=== PATIENT | male | born 1950 | race Caucasian/White ===

== ENCOUNTER → 2024-06-10 | Outpatient (CLI) | payer MEDICARE, BC, SELFPAY ==
--- NOTE | 2024-06-10 08:00 | XR_ITS ---
MRI shoulder, left, without contrast. Date and time: June 10, 2024 0855 hours INDICATIONS: Left shoulder pain beginning 4 months ago decreased range of motion pain radiating to the arm, rheumatoid arthritis diagnosis Technique: Multiple axial, sagittal and coronal sections of the shoulder have been obtained. Siemens high-resolution 1.5 Vangie MRI scanner is utilized. Axial fat-suppressed sections, TR 2350, TE 18 T2-weighted coronal fat-saturated images, TR 3500, TE 7100 T1-weighted coronal images, TR 500, TE 15 T2-weighted sagittal fat-saturated images, TR 3500, TE 57 T1-weighted sagittal sections, TR 504, TE 13. Findings: Supraspinatus tendon insertion is intact. Infraspinatus tendon insertion is intact. Subscapularis insertion is intact. Subscapularis bursa is not seen. Long head of the biceps is in the bicipital groove. No definite tear of the biceps superior labral anchor is seen. Retraction of the musculotendinous junction of the rotator cuff is not seen . Tendinosis pattern is moderate. Distance between the acromium and humeral head is 5.5 mm Atrophy of the supraspinatus muscle is moderate. Atrophy of the infraspinatus muscle is moderate. Sagittal sections demonstrate a horizontal acromion. Acromioclavicular joint demonstrates mild osteoarthritis . Osacromiale is not identified. Labral margins grossly intact. Bony glenoid fossa on the sagittal sections does not demonstrate osseous defect. Occult fracture or area of avascular necrosis is not seen. Acromioclavicular joint separation is not visible. Defect in the posterolateral margin of the humeral head is not seen Impression: Rotator cuff and labral margins intact Moderate rotator cuff tendinosis
== END | disposition home or self-care (01) ==
LOC: SMRI 08:27
PROVIDERS: PCP Internal Medicine Hospice and Palliative Medicine; Referring Provider Internal Medicine Hospice and Palliative Medicine; Visit Provider Internal Medicine Hospice and Palliative Medicine
DX: M67.814 Other specified disorders of tendon, left shoulder (principal)
CPT/HCPCS: 73221

== ENCOUNTER → 2024-10-16 | Outpatient (CLI) | payer MEDICARE, BC, SELFPAY ==
[2024-10-16 08:01] LABS: Misc Send Out* See Sep Rpt
[2024-10-16 09:07] LABS: Prostate Specific Antigen 0.21 ng/mL (0-4.00)
[2024-10-16 09:08] LABS: Alanine Aminotransferase 12 U/L (10-49); Albumin, Serum 4.1 gm/dL (3.4-4.8); Albumin/Globulin Ratio 1.8 (1.2-2.2); Alkaline Phosphatase 101 U/L (46-116); Anion Gap 9 (7-16); Aspartate Amino Transferase 24 U/L (0-34); BUN/Creatinine Ratio 16 Ratio (12-20); Blood Urea Nitrogen 16 mg/dL (9-23); C-Reactive Protein 0.7 mg/dL (0.0-0.9); Calcium 8.9 mg/dL (8.3-10.6); Calcium (Corrected) 8.9 mg/dL (8.5-10.1); Carbon Dioxide 23.1 mMol/L (20.0-31.0); Cardiac Risk Estimate 2.6 RATIO (4.0-6.7); Chloride 107 mMol/L (98-107); Cholesterol 100 mg/dL (132-200); Free T4 (Free Thyroxine) 1.27 ng/dL (0.89-1.76); Globulin 2.3 gm/dL (2.3-3.5); Glucose 98 mg/dL (74-106); HDL Cholesterol 38 mg/dL (40-60); LDL Cholesterol,Calculated 50 mg/dL (0-130); Osmolality,Calculated 278 (275-295); Potassium 4.3 mMol/L (3.4-5.1); Sodium 139 mMol/L (136-145); Total Protein 6.4 gm/dL (5.7-8.2); Triglycerides 62 mg/dL (30-150); eGFR > 60 See Note
[2024-10-16 09:11] LABS: Sed Rate (ESR) 20 mm/hr (0-20)
[2024-10-16 09:12] LABS: Vitamin D 25 Hydroxy Total 29.1 ng/mL (7.3-40.2)
[2024-10-16 09:20] LABS: Basophils % (Auto) 1 % (0-2.5); Eosinophils % (Auto) 0 % (0-10); Hematocrit 30.4 % (41.0-53.0); Hemoglobin 9.2 g/dL (13.5-16.0); Immature Granulocytes % (Auto) 1 % (0-0); Immature Granulocytes Auto 0.02 Thou/mm3 (0.00-0.00); Lymphocytes # (Auto) 0.4 Thou/mm3 (1.0-4.8); Lymphocytes % (Auto) 8 % (10-50); Mean Corpuscular HGB Conc 30.3 g/dl (31.0-37.0); Mean Corpuscular Hemoglobin 23.5 pg (25.0-35.0); Mean Corpuscular Volume 78 fL (80-100); Monocytes # (Auto) 0.1 Thou/mm3 (0.0-0.8); Monocytes % (Auto) 3 % (0-12); Neutrophils # (Auto) 3.8 Thou/mm3 (1.8-7.7); Neutrophils % (Auto) 87 % (37-80); Nucleated Red Blood Cell % 0 /100 WBC (0); Platelet Count 166 Thou/mm3 (140-440); RDW Standard Deviation 49.3 fL (35.1-43.9); Red Blood Count 3.91 Miln/mm3 (4.50-5.90); White Blood Count 4.4 Thou/mm3 (3.8-10.6)
[2024-10-16 09:55] LABS: Creatinine MALB Rnd Ur 100 mg/dL (30-125); Microalbumin Creat Ratio 4 mg/gCrea (<30); Microalbumin, Random Urine 4 mg/L (0-300)
[2024-10-22 23:34] LABS: Sjogren's antibody (SS-A) <1.0 NEG AI (<1.0 NEGATIVE); Sm Antibody <1.0 NEG AI (<1.0 NEGATIVE)
[2024-10-23 06:26] LABS: ANA Screen, IFA NEGATIVE (NEGATIVE); ANCA Screen NEGATIVE (NEGATIVE); CCP Antibody (IgG)* <16 Units; DNA (ds) Antibody* <1 IU/mL; Myeloperoxidase Ab <1.0 AI (<1.0); Scl-70 Antibody* <1.0 NEG AI (<1.0 NEGATIVE); Sjogren's Antibody (SS-B) <1.0 NEG AI (<1.0 NEGATIVE); Sm/RNP Antibody <1.0 NEG AI (<1.0 NEGATIVE)
[2024-10-23 06:27] LABS: Proteinase-3 Ab <1.0 AI (<1.0)
== END | disposition home or self-care (01) ==
LOC: COPL 07:31
PROVIDERS: PCP Internal Medicine Hospice and Palliative Medicine; Referring Provider Nurse Practitioner Family; Visit Provider Nurse Practitioner
DX: M79.641 Pain in right hand (principal); R29.898 Other symptoms and signs involving the musculoskeletal system; M11.20 Other chondrocalcinosis, unspecified site; E78.5 Hyperlipidemia, unspecified; N40.0 Benign prostatic hyperplasia without lower urinary tract symptoms; Z12.5 Encounter for screening for malignant neoplasm of prostate; I87.312 Chronic venous hypertension (idiopathic) with ulcer of left lower extremity; D64.9 Anemia, unspecified; E55.9 Vitamin D deficiency, unspecified; R53.83 Other fatigue; M10.9 Gout, unspecified; M13.0 Polyarthritis, unspecified
CPT/HCPCS: 36415; 80053; 80061; 82043; 82306; 82570; 84153; 84439; 84443; 84550; 85025; 85652; 86021; 86036; 86038; 86140; 86200; 86225; 86235

== ENCOUNTER → 2024-10-21 | Outpatient (CLI) | payer MEDICARE, BC, SELFPAY ==
[2024-10-27 07:07] LABS: Fecal Globin Result NOT DETECTED (NOT DETECTED)
== END | disposition home or self-care (01) ==
LOC: SLDO 12:21
PROVIDERS: Referring Provider Nurse Practitioner Family; Visit Provider Nurse Practitioner Family
DX: Z12.11 Encounter for screening for malignant neoplasm of colon (principal)
CPT/HCPCS: 82274; G0328

== ENCOUNTER 2024-11-06 02:30 | Inpatient (IN) | payer MEDICARE, BC, SELFPAY ==
[2024-11-06] VITALS (29 sets, daily range): BP systolic 118–169; BP diastolic 51–98; PULSE 60–96; RESP 9–98; TEMP 36.6–37.2; O2SAT 83–100; BMI 21.9
--- NOTE | 2024-11-06 02:45 | XR_ITS ---
Examination: AP chest single view TECHNIQUE: AP portable supine chest single view Exam date and time: November 06, 2024, 0433 hours Comparison February 13, 2022 INDICATIONS: Preop chest x-ray, ground level fall today with femur fracture FINDINGS: Mild CHF Mild enlargement cardiac contour Prominent vascular congestion with early perihilar edema Severe osteopenia IMPRESSION: Mild CHF
--- NOTE | 2024-11-06 02:45 | XR_ITS ---
Examination: CT brain head without contrast. 2-D sagittal coronal reconstructions Date and time of exam:November 06, 2024 0422 hours INDICATIONS: Ground-level fall with injury today, CTDI: vol (mGy): 52.9 DLP: (mGycm):1047 Technique: Multiple CT axial sections of the brain have been obtained, 5 mm slice thickness. Contrast has not been administered. 2-D sagittal, coronal reconstructions have been obtained Low dose protocols were performed. One or more of the following dose reduction techniques were used; automated exposure control, adjustment of the mA and/or KV according to patient size, use of iterative reconstruction technique. Findings: No significant ventricular enlargement. Intra-axial or extra-axial hemorrhage density is not seen. No mass effect or midline shift Basal cisterns are not remarkable. Fourth ventricle is midline. Cranial vault intact. Impression: Negative for acute hemorrhage, mass effect or midline shift
--- NOTE | 2024-11-06 02:51 | XR_ITS ---
Examination: Right femur 2 views Technique one AP lateral right femur 2 views Examination type: November 06, 2024 0443 hours INDICATIONS: Ground-level fall today with injury to the femur, femur pain. FINDINGS: Acute severely comminuted angulated fracture distal femoral shaft, up to 20 mm offset on the AP view of the fracture fragments Total right hip arthroplasty with satisfactory alignment IMPRESSION: Acute severity comminuted angulated fracture distal femoral shaft
--- NOTE | 2024-11-06 02:51 | XR_ITS ---
Examination:Right hip AP, lateral, AP pelvis 3 views Technique: Hip AP lateral, AP pelvis, 3 views Exam date and time:November 06, 2024 0434 hours INDICATIONS: Ground-level fall today with injury to the right hip, right hip pain FINDINGS: Total right hip arthroplasty. Adequate alignment Left hip bipolar hemiarthroplasty with satisfactory alignment Bones of the pelvis intact IMPRESSION: No acute fracture.
--- NOTE | 2024-11-06 02:51 | EKG_ITS ---
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
--- NOTE | 2024-11-06 02:56 | XR_ITS ---
Examination: CT cervical spine without contrast 2-D sagittal reconstructions 2-D coronal reconstructions 3-D reconstructions. Exam date and time:November 06, 2024 0422 hours INDICATIONS: Ground-level fall today with injury of the neck, neck pain CTDI:vol (mGy) 8.8 DLP: (mGycm) 180 Technique: Multiple 2 mm axial sections of the cervical spine have been obtained. The coronal and sagittal reconstructions have been obtained. 3-D reconstructions have been obtained. Low dose protocols were performed. One or more of the following dose reduction techniques were used; automated exposure control, adjustment of the mA and/or KV according to patient size, use of iterative reconstruction technique. Findings: Axial sections demonstrate intact base of the skull. C1 exhibit satisfactory relationship to the odontoid. No acute cervical vertebral body fracture seen. Alignment posterior spinous processes satisfactory. Impression: No acute cervical fracture. Probable septal edema in the lung ornelas
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
[2024-11-06] MEDS: ONDANSETRON INJ 2 MG/ML INJ 2 ML 4 MG IV (03:48)
[2024-11-06] MEDS: fentaNYL CIT INJ 50 mCg/ML AMP 2ML 25 MCG IVP (03:48)
--- NOTE | 2024-11-06 03:54 | PC.NURSE ---
0T REFUSED TO ANSWER ANY MEDICAL HISTORY
[2024-11-06 04:08] LABS: Basophils % (Auto) 1 % (0-2.5); Eosinophils # (Auto) 0.1 Thou/mm3 (0.0-0.5); Eosinophils % (Auto) 2 % (0-10); Hematocrit 27.2 % (41.0-53.0); Immature Granulocytes % (Auto) 0 % (0-0); Immature Granulocytes Auto 0.02 Thou/mm3 (0.00-0.00); Lymphocytes % (Auto) 16 % (10-50); Mean Corpuscular HGB Conc 29.8 g/dl (31.0-37.0); Mean Corpuscular Hemoglobin 22.8 pg (25.0-35.0); Mean Corpuscular Volume 76 fL (80-100); Monocytes # (Auto) 0.6 Thou/mm3 (0.0-0.8); Monocytes % (Auto) 10 % (0-12); Neutrophils # (Auto) 4.4 Thou/mm3 (1.8-7.7); Neutrophils % (Auto) 71 % (37-80); Nucleated Red Blood Cell % 0 /100 WBC (0); Platelet Count 125 Thou/mm3 (140-440); RDW Standard Deviation 50.6 fL (35.1-43.9); Red Blood Count 3.56 Miln/mm3 (4.50-5.90); White Blood Count 6.2 Thou/mm3 (3.8-10.6)
[2024-11-06] MEDS: KETAMINE 50 MG/ML VIAL 10 ML 25 MG IVP (04:12)
[2024-11-06 04:13] LABS: Hemoglobin 8.1 g/dL (13.5-16.0)
[2024-11-06 04:22] LABS: INR 1.2 (0.9-1.3); Partial Thromboplastin Time 29.7 Seconds (22.0-36.0)
[2024-11-06 04:23] LABS: Alanine Aminotransferase 26 U/L (10-49); Albumin, Serum 3.5 gm/dL (3.4-4.8); Albumin/Globulin Ratio 1.5 (1.2-2.2); Alkaline Phosphatase 143 U/L (46-116); Anion Gap 5 (7-16); Aspartate Amino Transferase 31 U/L (0-34); BUN/Creatinine Ratio 11 Ratio (12-20); Bilirubin,Total 0.6 mg/dL (0.3-1.2); Blood Urea Nitrogen 10 mg/dL (9-23); Calcium (Corrected) 8.4 mg/dL (8.5-10.1); Carbon Dioxide 23.6 mMol/L (20.0-31.0); Chloride 111 mMol/L (98-107); Creatinine (Component) 0.9 mg/dL (0.6-1.3); Estimated Creatinine Clearance 68.5 mL/min (>60); Globulin 2.3 gm/dL (2.3-3.5); Glucose 123 mg/dL (74-106); Magnesium 1.8 mg/dL (1.6-2.6); Osmolality,Calculated 279 (275-295); Phosphorous 3.3 mg/dL (2.4-5.1); Potassium 3.7 mMol/L (3.4-5.1); Sodium 140 mMol/L (136-145); Total Protein 5.8 gm/dL (5.7-8.2); Troponin I < 0.020 ng/mL (0.0-0.045); eGFR > 60 See Note
--- NOTE | 2024-11-06 04:42 | PC.NURSE ---
PT POCKET KNIFE AND SUPERINTENDENT REFUSE DISPOSAL WITH SECURITY
--- NOTE | 2024-11-06 04:48 | XR_ITS ---
Examination: Tibia-Fibula, right , 2 views Technique: Tibia-fibula AP lateral 2 views Date and time of exam: November 06, 2024 0456 hours INDICATIONS: Ground-level fall with injury to the lower leg today, lower leg pain. FINDINGS: Significant osteopenia. No fracture-dislocation involving the lower leg IMPRESSION: No fracture or dislocation involving the lower leg
[2024-11-06] MEDS: Magnesium Sulfate 2 GM Ivpb 2 GM/50 ML BAG IV (05:09)
--- NOTE | 2024-11-06 05:12 | PRELIM_ITS ---
CT scan of the head without intravenous contrast (axial sections with sagittal and coronal reformats) November 06, 2024 0422 hours Clinical History: Ground level fall. Comparison: None. Findings: There is no evidence of intracranial hemorrhage, mass effect or midline shift. There are periventricular white matter hypodensities, compatible with chronic small vessel ischemia. There is severe volume loss. The calvarium is intact. The mastoid air cells and the visualized paranasal sinuses are clear. Impression: No evidence of intracranial hemorrhage, midline shift or calvarial fracture. Periventricular chronic small vessel ischemia and volume loss. Report Electronically Signed By: Felix Del Rosario 11/06/2024 5:12:05 AM [EST]
[2024-11-06 05:16] LABS: Base Excess -2 (-3-3); HCO3 23 mEq/L (20-26); Inspired Oxygen, FIO2 35 %; O2 Saturation 98 % (91-98); PCO2 37 mmHg (32.0-48.0); PO2 101 mmHg (83-108)
[2024-11-06 05:17] LABS: Allen Test Performed/OK; Puncture Site Right Radial
--- NOTE | 2024-11-06 05:18 | PRELIM_ITS ---
CT scan of the cervical spine without intravenous contrast (axial sections with sagittal and coronal reformats). November 06, 2024 at 0422 hours Clinical History: Ground level fall. Comparison: No prior study is available for comparison. Findings: There is no fracture or subluxation. The prevertebral soft tissues are unremarkable. Chronic degenerative changes of the imaged portions of the spine. Chronic multilevel disc disease. No acute fractures. Bilateral interstitial lung thickening. Impression: No evidence of fracture or subluxation. Bilateral interstitial lung thickening. Consider further evaluation with imaging of the lungs. Report Electronically Signed By: Felix Del Rosario 11/06/2024 5:18:10 AM [EST]
--- NOTE | 2024-11-06 05:47 | ECHO_ITS ---
Transthoracic Echo Report Ht (in): 68 Wt (lb): 144 Exam Location: Portable Status: Emergency Clip Riveter: GERI Rdz^^^^ Indications: Procedure Performed: BP: 118 / 62 HR: 58 Technical Quality: Technically difficult study MEASUREMENTS (Male / Female) Normal Values 2D ECHO LV Diastolic Diameter PLAX 4.8 cm 4.2 - 5.9 / 3.9 - 5.3 cm LV Systolic Diameter PLAX 3.1 cm IVS Diastolic Thickness 1.1 cm 0.6 - 1.0 / 0.6 - 0.9 cm LVPW Diastolic Thickness 1.1 cm 0.6 - 1.0 / 0.6 - 0.9 cm LV Relative Wall Thickness 0.4 LVOT Diameter 1.8 cm Aortic Root Diameter 3.8 cm LA Systolic Diameter LX 5.3 cm 3.0 - 4.0 / 2.7 - 3.8 cm LA Volume Index 68.4 cm?/m? 16 - 28 cm?/m? DOPPLER AV Peak Velocity 114.5 cm/s AV Peak Gradient 5.2 mmHg AV Mean Gradient 3.0 mmHg AV Velocity Time Integral 26.6 cm AI Peak Velocity 140.0 cm/s AI Peak Gradient 7.8 mmHg AI Pressure Half Time 254.0 ms LVOT Peak Velocity 76.1 cm/s LVOT Peak Gradient 2.3 mmHg LVOT Velocity Time Integral 19.4 cm LVOT Cardiac Index 1617.7 cm?/min?m? AV Area Cont Eq vti 1.9 cm? AV Area Cont Eq pk 1.7 cm? MV Peak Velocity 106.0 cm/s MV Peak Gradient 4.5 mmHg MV Mean Velocity 63.8 cm/s MV Mean Gradient 2.0 mmHg MV Area PHT 4.0 cm? Mitral E Point Velocity 111.0 cm/s Mitral A Point Velocity 63.2 cm/s Mitral E to A Ratio 1.8 LV E' Lateral Velocity 13.4 cm/s Mitral E to LV E' Lateral Ratio 8.3 LV E' Septal Velocity 5.0 cm/s Mitral E to LV E' Septal Ratio 22.4 TR Peak Velocity 331.3 cm/s TR Peak Gradient 43.9 mmHg PV Peak Velocity 90.4 cm/s PV Peak Gradient 3.3 mmHg RVOT Peak Velocity 46.6 cm/s FINDINGS Left Ventricle Normal left ventricular size, wall thickness, systolic function with no obvious regional wall motion abnormalities. There is grade II diastolic dysfunction of the left ventricle (pseudonormal filling pattern). The left ventricular ejection fraction is normal, estimated at 60-65%. Right Ventricle The right ventricle is normal in size and systolic function. The estimated right ventricular systolic pressure is moderately elevated 50 mmHg. Left Atrium Moderately increased left atrial volume 68.4 mL/m?. Right Atrium The right atrial cavity size is mildly increased. Atrial Septum The interatrial septum appears normal with no evidence of a shunt. Aorta The aorta is normal by two-dimensional, color flow and Doppler interrogation. Mitral Valve Mild mitral regurgitation. Mild mitral annular calcification. Aortic Valve Mild aortic valve regurgitation. Diffuse calcification of the aortic valve. Tricuspid Valve There is moderate tricuspid regurgitation. Pulmonic Valve The pulmonic valve is not well visualized. There is no significant pulmonic valve regurgitation. Vessels The pulmonary artery appears normal. The inferior vena cava pulmonary and hepatic veins appear normal. Pericardium The pericardium is normal by two-dimensional imaging. There is no significant pericardial effusion. CONCLUSIONS indication: cardiac clearance LV appears normal with EF 60-65%. Diastolic Dysfunction II. RV appears normal with RVSP moderately elevcated 50 mmHg. LA & RA dilated Mild MR & MAC Moderate TR Mild AI Viridiana Henderson (Electronically Signed) Final Date: 06 Nov 2024 12:01
--- NOTE | 2024-11-06 05:56 | EVENTNT_ITS ---
Documentation for date of: 11/06/24 Event Note Event Note: Received call from ER for possible admission. Patient is a 74-year-old male with past medical history of HFpEF, coronary artery disease status post PCI, A-fib on Eliquis, follows research computing specialist Dr. Rothman in [place], [place] brought into the ER after mechanical ground-level fall after he tripped over the carpet. He was found to have right comminuted femur fracture. ER consulted orthopedic surgeon Dr. See, The patient will require cardiac clearance prior to surgery.Noted to have stable vitals, blood pressure 137/73, respiratory rate 16, pulse 65-minute, saturating 100% on room air. Will inform dayshift to admit the patient. ? Hold Eliquis ? Cardiac consult for cardiac clearance prior to surgery ? Pending orthopedic recommendations Plan of care discussed with Attending Jhoan pgy 2
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
[2024-11-06] MEDS: SODIUM CHLORIDE 0.9% 1000 ML 1,000 ML 75 ML IV (09:02)
[2024-11-06] MEDS: HYDROcodone/APAP 10/325 TAB PO ×3 (09:03→21:00)
--- NOTE | 2024-11-06 09:44 | PC.NURSE ---
ATTEMPTED TO INSERT ADAMS WITHOUT SUCCESS. GALINA KELLY TO CALL HOSPITALIST FOR ORDER FOR COUDE CATHETER
--- NOTE | 2024-11-06 09:46 | PC.NURSE ---
[employer] CALLED AND ASKED TO BRING UROLOGY CART. PER [employer] STAFF, WILL BRING IT TO THE ER SOON.
[2024-11-06 10:37] LABS: Collection Type, Urine Clean Catch
[2024-11-06 11:03] LABS: Amphetamine/Methamp Scrn,U Negative (Negative); Barbiturate Screen,Urine Negative (Negative); Benzodiazepines Screen,Urine Negative (Negative); Benzoylecgonine Screen, Ur Negative (Negative); Fentanyl Screen,Urine Positive (Negative); Opiate Screen,Urine Positive (Negative); THC Screen,Urine Positive (Negative)
[2024-11-06 14:03] LABS: Bilirubin,Urine Negative (Negative); Blood,Urine 3+ (Negative); Clarity,Urine Clear (Clear/Hazy); Color,Urine Yellow (Lt Yel-Yel); Glucose, Urine Negative (Negative); Hyaline Casts,Urine < 1 /hpf (0-1); Ketones,Urine Negative (Negative); Leukocyte Esterase,Urine Negative (Negative); Nitrite,Urine Negative (Negative); Protein,Urine Trace (Neg - Trace); RBC,Urine 3 /hpf (0-3); Specific Gravity,Urine 1.018 (1.001-1.035); Squamous Epithelial Cell,Urine < 1 /hpf (0-5); Urobilinogen,Urine Negative mg/dL (0.0-1.0); WBC,Urine 3 /hpf (0-5)
--- NOTE | 2024-11-06 14:59 | PC.NURSE ---
Pt refusing to be turned and at this time due to pain to R leg. Pt educated on risks of developing pressure injuries if pt continues to lay on his back without turning; per pt, I know; you can't move me.
--- NOTE | 2024-11-06 18:08 | PC.NURSE ---
Patient arrived to floor 10/10 pain moving him to his bed. Pt fell asleep quickly, admit limited as patient was lethargic after getting settled into bed. Make shift brace to right leg made with cardboard from EMS is in place.
[2024-11-07] VITALS (13 sets, daily range): BP systolic 123–151; BP diastolic 60–89; PULSE 71–889; RESP 13–99; TEMP 36.1–37.1; O2SAT 94–98; BMI 23.6
[2024-11-07] MEDS: SODIUM CHLORIDE 0.9% 1000 ML 1,000 ML 75 ML IV ×2 (01:27→12:53)
[2024-11-07] MEDS: HYDROcodone/APAP 10/325 TAB PO ×2 (02:25→08:43)
[2024-11-07 06:25] LABS: Basophils % (Auto) 0 % (0-2.5); Eosinophils % (Auto) 1 % (0-10); Hematocrit 26.1 % (41.0-53.0); Immature Granulocytes % (Auto) 1 % (0-0); Immature Granulocytes Auto 0.04 Thou/mm3 (0.00-0.00); Lymphocytes # (Auto) 0.8 Thou/mm3 (1.0-4.8); Lymphocytes % (Auto) 10 % (10-50); Mean Corpuscular HGB Conc 29.9 g/dl (31.0-37.0); Mean Corpuscular Hemoglobin 22.9 pg (25.0-35.0); Mean Corpuscular Volume 77 fL (80-100); Monocytes # (Auto) 0.8 Thou/mm3 (0.0-0.8); Monocytes % (Auto) 10 % (0-12); Neutrophils # (Auto) 6.5 Thou/mm3 (1.8-7.7); Neutrophils % (Auto) 80 % (37-80); Nucleated Red Blood Cell % 0 /100 WBC (0); Platelet Count 133 Thou/mm3 (140-440); RDW Standard Deviation 49.9 fL (35.1-43.9); White Blood Count 8.2 Thou/mm3 (3.8-10.6)
[2024-11-07 06:32] LABS: Hemoglobin 7.8 g/dL (13.5-16.0)
[2024-11-07 06:54] LABS: Alanine Aminotransferase 16 U/L (10-49); Albumin/Globulin Ratio 1.6 (1.2-2.2); Alkaline Phosphatase 121 U/L (46-116); Anion Gap 5 (7-16); Aspartate Amino Transferase 18 U/L (0-34); BUN/Creatinine Ratio 14 Ratio (12-20); Bilirubin,Total 1.1 mg/dL (0.3-1.2); Blood Urea Nitrogen 11 mg/dL (9-23); Calcium 7.6 mg/dL (8.3-10.6); Calcium (Corrected) 8.4 mg/dL (8.5-10.1); Carbon Dioxide 23.2 mMol/L (20.0-31.0); Chloride 112 mMol/L (98-107); Creatinine (Component) 0.8 mg/dL (0.6-1.3); Estimated Creatinine Clearance 80.8 mL/min (>60); Globulin 1.9 gm/dL (2.3-3.5); Glucose 94 mg/dL (74-106); Magnesium 1.8 mg/dL (1.6-2.6); Osmolality,Calculated 278 (275-295); Phosphorous 3.1 mg/dL (2.4-5.1); Sodium 140 mMol/L (136-145); Total Protein 4.9 gm/dL (5.7-8.2); eGFR > 60 See Note
--- NOTE | 2024-11-07 08:27 | PD.IMCONS ---
HPI Data of Consult Requesting Physician: Marline Mcdaniel DO Primary Care Provider: Physician No Primary/Family Consult Narrative History of present illness: This is [id number] male with past medical history of HFpEF, CAD status post PCI, A-fib on Eliquis pt seen in ER following a fall ; sustained a fracture pt denies chest pain c/o of pain over the fracture R leg EKG afib ; no ischemic change HR 70-80 troponin negative eche normal EF no significant valve dysfunction cc:: cc: Marline Mcdaniel DO Meds Home Medications and Allergies Home Medications ?Medication ?Instructions ?Recorded ?Confirmed ?Type allopurinol 100 mg tablet 100 mg 1XD 02/13/22 02/14/22 History apixaban 5 mg tablet (Eliquis) 5 mg 2XD 02/13/22 02/14/22 History colchicine 0.6 mg tablet 1 tab 1XD 02/13/22 02/14/22 History oxycodone-acetaminophen 10 mg-325 1 tab 5 TIMES DAILY 02/13/22 02/14/22 History mg tablet tamsulosin 0.4 mg capsule (Flomax) 0.4 mg PO 1XD 02/13/22 02/14/22 History allopurinol 300 mg tablet 300 mg 1XD 02/14/22 02/14/22 History Allergies Allergy/AdvReac Type Severity Reaction Status Date / Time No Known Allergies Allergy Verified 11/06/24 02:59 Exam Vital Signs Temp Pulse Resp BP Pulse Ox O2 Del Method O2 Flow Rate 98.2 F 94 14 129/73 98 Room Air 2 11/07/24 08:00 11/07/24 08:00 11/07/24 08:00 11/07/24 08:00 11/07/24 08:00 11/07/24 04:00 11/07/24 00:00 Routine HEENT Exam Head: Present normocephalic and atraumatic Eye: Present EOMI and PERRL ENT: Present mucous membranes moist Routine Neck Exam Neck: Present supple and trachea midline Routine Respiratory Exam Respiratory: Present chest non-tender, lungs clear, normal breath sounds and no resp distress Routine Cardiovascular Exam Cardiovascular: Present RRR Routine Abdominal Exam Abdominal: Present soft and normoactive bowel sounds Routine Extremities Exam Extremities: Present full ROM Routine Skin Exam Skin: Present intact, dry and warm Routine Neurological Exam Neurological: Present alert, oriented X3 and CN II-XII intact Routine Psychiatric Exam Psychiatric: Present normal affect and normal thought process Results Labs 11/07/24 05:26 11/07/24 05:26 Labs: Short CBC 11/07/24 Range/Units 05:26 WBC 8.2 (3.8-10.6) Thou/mm3 Hgb 7.8 L (13.5-16.0) g/dL Hct 26.1 L (41.0-53.0) % Plt Count 133 L (140-440) Thou/mm3 BMP 11/07/24 05:26 Sodium 140 Potassium 4.0 Chloride 112 H Carbon Dioxide 23.2 BUN 11 Creatinine 0.8 Glucose 94 Calcium 7.6 L Liver Function 11/07/24 Range/Units 05:26 Total Bilirubin 1.1 D (0.3-1.2) mg/dL AST 18 (0-34) U/L ALT 16 (10-49) U/L Alkaline Phosphatase 121 H D (46-116) U/L Albumin 3.0 L D (3.4-4.8) gm/dL Urine 11/06/24 Range/Units 10:31 Urine Color Yellow (Lt Yel-Yel) Urine Clarity Clear (Clear/Hazy) Urine pH 6.0 (5.0-7.0) Ur Specific [place] 1.018 (1.001-1.035) Urine Protein Trace (Neg - Trace) Urine Glucose (UA) Negative (Negative) ABG Interpretation ABG results: 11/06/24 05:05 ABG pH 7.40 ABG pCO2 37 ABG pO2 101 ABG HCO3 23 ABG O2 Saturation 98 ABG Base Excess -2 Assessment and Plan Assessment and plan (1) Fracture of distal end of right femur: Status: Acute (2) Afib: Status: Acute (3) Preop cardiovascular exam: Status: Acute (4) CAD (coronary artery disease): Status: Acute Additional Assessment & Plan Additional Plan: d/c eliquis pt offers no cardiac symptoms echo / EKG / torponin all unremarkable pt in optimal cardiac condition for the planned surgery
[2024-11-07] MEDS: TAMSULOSIN HCL 0.4 MG CAPSULE PO (08:42)
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
--- NOTE | 2024-11-07 11:07 | PC.SS ---
RN BEHAVIORAL HEALTH conducted bedside contact with the patient conduct initial assessment and to discuss discharge planning.? Patient confirmed demographic information.? Patient resides at home with spouse, Malathi Francicso .? Patient utilizes a walker to assist with ambulation.? Patient does not utilize home oxygen.? Patient describes the ability to complete ADL?s independently.? Patient identified spouse, Malathi Francisco; as medical surrogate decision maker.? Patient?s PCP is [facility].? Patient does not participate with dialysis.? Patient?s eye glass frame polisher is Dr. Rothman.? Patient utilizes [facility] for medication services.? Patient states that plan is to return home with home health services.? Preferred agency is [facility].? If SNF is recommended preferred facility is [facility].? pupil personnel services director to assist with arranging transportation on behalf of the patient at the time of discharge.? No further discharge needs identified by the patient.? No further intervention required at this time, home health care social worker will be available to address any further concerns.? Next of Kin: Malathi Francisco D/C Plan: Pending
[2024-11-07] MEDS: oxyCODONE/APAP 5/325 TABLET 2 TAB PO ×2 (13:02→19:23)
--- NOTE | 2024-11-07 13:47 | PC.SS ---
[employer] TECHNICIAN completed PASSR. Patient meets Level I critieria. No PASSR follow up required.
--- NOTE | 2024-11-07 14:37 | PC.SS ---
Rounding Note: Plan is for the patient to undergo surgery on Sunday.
--- NOTE | 2024-11-07 17:12 | ESCONSULT_ITS ---
RE: LUIS SAMS : 1950 DATE OF CONSULTATION: 11/07/2024 Thank you, Dr. Danilo Garcia, for asking me to consult with the patient, whom I saw on 11/07/2024 in the morning. As per history available, patient tripped on a carpet and injured his right distal femur. The patient was unable to walk. X-ray was obtained in the emergency room, which revealed displaced angulated fracture of the right distal femur. The patient is admitted for further management. It is to be noted that patient is status post right total hip replacement. PAST MEDICAL HISTORY: The patient has history of atrial fibrillation and coronary artery disease. No history of diabetes mellitus, asthma, seizures, chest pain or myocardial infarction. PAST SURGICAL HISTORY: Status post right total knee replacement, left knee surgery, and possible stent placement by Dr. Rothman, the office systems technology instructor. DRUG HISTORY: The patient is on allopurinol, Eliquis 5 mg twice daily, and oxycodone. ALLERGIES: NIL KNOWN. FAMILY HISTORY AND SOCIAL HISTORY: Noncontributory. PHYSICAL EXAMINATION: GENERAL: Fully alert and oriented person. VITAL SIGNS: Pulse is 82 per minute and blood pressure 130/76. NECK: Soft and supple. No mass felt. Trachea is centrally placed. CARDIOVASCULAR SYSTEM: First and second heart sound normal. No murmur heard. RESPIRATORY SYSTEM: Bilateral vesicular breath sounds. Chest clear. ABDOMEN: Soft. No mass felt. Bowel sounds present. Right lower limb examination revealed tenderness at the distal end. Besides that, there is a deformity. Neurovascularly, it is intact. X-ray revealed angulated displaced fracture of the right distal femur. I discussed the situation with the family and the patient. Explained that it needs fixation either with the nail or screws and plate. Risk with anesthesia was explained and that includes, but not limited to reaction to anesthetic agents, cardiac arrest, and rarely it might be fatal. Risk with operation includes infection and if that happens, patient may need further surgical procedure. Other risks include delayed healing, wound dehiscence, etc. No guarantee is given regarding the outcome of the procedure nor relief of symptoms. I discussed the situation with Dr. Mcdaniel, the family physician. I explained that since the patient is taking high dose of Eliquis and the last dose was taken only about 30 hours back, therefore I think we need to wait for another day or [address] Mcdaniel agrees with that. Besides that, the patient's hemoglobin is also low. On 11/07/2024, it is 7.8 g and hematocrit is 26.1. Most likely, the surgical procedure will be done after a couple of days on 11/09/2024. After a detailed discussion, the patient and the family wanted to proceed, but has to wait because of patient being on anticoagulant therapy. DT: 13:59:42 TT: 17:11:00 Ref: [id number] - TID: [id number]
--- NOTE | 2024-11-07 18:13 | PC.NURSE ---
Pt continues to refuse turning
[2024-11-08] VITALS (10 sets, daily range): BP systolic 138–150; BP diastolic 72–92; PULSE 60–109; RESP 15–96; TEMP 36.1–36.9; O2SAT 95–97; BMI 25.7
[2024-11-08] MEDS: oxyCODONE/APAP 5/325 TABLET 2 TAB PO ×4 (03:07→22:05)
[2024-11-08] MEDS: SODIUM CHLORIDE 0.9% 1000 ML 1,000 ML 75 ML IV (05:07)
[2024-11-08 06:15] LABS: Basophils % (Auto) 1 % (0-2.5); Eosinophils # (Auto) 0.1 Thou/mm3 (0.0-0.5); Eosinophils % (Auto) 1 % (0-10); Hematocrit 28.4 % (41.0-53.0); Immature Granulocytes % (Auto) 0 % (0-0); Immature Granulocytes Auto 0.03 Thou/mm3 (0.00-0.00); Lymphocytes # (Auto) 0.8 Thou/mm3 (1.0-4.8); Lymphocytes % (Auto) 10 % (10-50); Mean Corpuscular HGB Conc 31.7 g/dl (31.0-37.0); Mean Corpuscular Hemoglobin 23.8 pg (25.0-35.0); Mean Corpuscular Volume 75 fL (80-100); Monocytes # (Auto) 0.9 Thou/mm3 (0.0-0.8); Monocytes % (Auto) 11 % (0-12); Neutrophils # (Auto) 6.2 Thou/mm3 (1.8-7.7); Neutrophils % (Auto) 78 % (37-80); Nucleated Red Blood Cell % 0 /100 WBC (0); Platelet Count 129 Thou/mm3 (140-440); RDW Standard Deviation 49.2 fL (35.1-43.9); Red Blood Count 3.78 Miln/mm3 (4.50-5.90)
[2024-11-08 06:41] LABS: Alanine Aminotransferase 13 U/L (10-49); Albumin, Serum 2.9 gm/dL (3.4-4.8); Albumin/Globulin Ratio 1.4 (1.2-2.2); Alkaline Phosphatase 119 U/L (46-116); Anion Gap 7 (7-16); Aspartate Amino Transferase 14 U/L (0-34); BUN/Creatinine Ratio 14 Ratio (12-20); Bilirubin,Total 0.9 mg/dL (0.3-1.2); Blood Urea Nitrogen 10 mg/dL (9-23); Calcium 7.6 mg/dL (8.3-10.6); Calcium (Corrected) 8.5 mg/dL (8.5-10.1); Carbon Dioxide 23.4 mMol/L (20.0-31.0); Chloride 109 mMol/L (98-107); Creatinine (Component) 0.7 mg/dL (0.6-1.3); Estimated Creatinine Clearance 92.3 mL/min (>60); Globulin 2.1 gm/dL (2.3-3.5); Glucose 102 mg/dL (74-106); Magnesium 1.7 mg/dL (1.6-2.6); Osmolality,Calculated 276 (275-295); Phosphorous 2.3 mg/dL (2.4-5.1); Potassium 3.6 mMol/L (3.4-5.1); Sodium 139 mMol/L (136-145); eGFR > 60 See Note
[2024-11-08] MEDS: POTASSIUM CHLORIDE 20 mEq TABCR 40 MEQ PO (08:34)
[2024-11-08] MEDS: TAMSULOSIN HCL 0.4 MG CAPSULE PO (08:35)
[2024-11-08] MEDS: Magnesium Sulfate 4 GM Ivpb 4 GM/50 ML BAG IV (08:35)
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
[2024-11-08] MEDS: METOPROLOL SUCCINATE XL 25 MG TABCR PO (12:59)
--- NOTE | 2024-11-08 16:25 | PC.NURSE ---
Pulled patient up in bed, offered to reposition patient for better leg support, pt refused to be turned or repositioned
--- NOTE | 2024-11-08 17:46 | PC.NURSE ---
called blood bank to confirm 2 rpbc for procedure 11/09, confirmed 2 bags ready
[2024-11-09] VITALS (14 sets, daily range): BP systolic 99–160; BP diastolic 48–91; PULSE 68–86; RESP 14–96; TEMP 36.1–36.5; O2SAT 94–100
--- NOTE | 2024-11-09 04:21 | PC.NURSE ---
patient requesting pain medication percoccet, told patient that he can't have anything since he is NPO for surgery at 0900, educated patient about the risk of aspirating patient states he will not aspirate, I've had multiple surgeries and that has not happened . patient does have morphine IV but patient states morphine does not help him. spoke to dr torrez and Dr cole stating that we can give percoccet medication with small sips of water since it is 5 hours before surgery.
[2024-11-09] MEDS: oxyCODONE/APAP 5/325 TABLET 2 TAB PO ×2 (04:38→22:18)
[2024-11-09 06:13] LABS: Basophils % (Auto) 0 % (0-2.5); Eosinophils % (Auto) 0 % (0-10); Hematocrit 31.6 % (41.0-53.0); Hemoglobin 9.4 g/dL (13.5-16.0); Immature Granulocytes % (Auto) 0 % (0-0); Immature Granulocytes Auto 0.04 Thou/mm3 (0.00-0.00); Lymphocytes # (Auto) 1.1 Thou/mm3 (1.0-4.8); Lymphocytes % (Auto) 9 % (10-50); Mean Corpuscular HGB Conc 29.7 g/dl (31.0-37.0); Mean Corpuscular Hemoglobin 23.6 pg (25.0-35.0); Mean Corpuscular Volume 79 fL (80-100); Monocytes # (Auto) 1.1 Thou/mm3 (0.0-0.8); Monocytes % (Auto) 10 % (0-12); Neutrophils # (Auto) 9.2 Thou/mm3 (1.8-7.7); Neutrophils % (Auto) 81 % (37-80); Nucleated Red Blood Cell % 0 /100 WBC (0); Platelet Count 165 Thou/mm3 (140-440); RDW Standard Deviation 52.6 fL (35.1-43.9); Red Blood Count 3.99 Miln/mm3 (4.50-5.90); White Blood Count 11.4 Thou/mm3 (3.8-10.6)
[2024-11-09 06:47] LABS: Alanine Aminotransferase 12 U/L (10-49); Albumin, Serum 3.3 gm/dL (3.4-4.8); Albumin/Globulin Ratio 1.4 (1.2-2.2); Alkaline Phosphatase 122 U/L (46-116); Anion Gap 8 (7-16); Aspartate Amino Transferase 15 U/L (0-34); BUN/Creatinine Ratio 13 Ratio (12-20); Bilirubin,Total 0.6 mg/dL (0.3-1.2); Blood Urea Nitrogen 10 mg/dL (9-23); Calcium (Corrected) 8.6 mg/dL (8.5-10.1); Carbon Dioxide 24.5 mMol/L (20.0-31.0); Chloride 107 mMol/L (98-107); Creatinine (Component) 0.8 mg/dL (0.6-1.3); Estimated Creatinine Clearance 80.8 mL/min (>60); Globulin 2.3 gm/dL (2.3-3.5); Glucose 152 mg/dL (74-106); Osmolality,Calculated 279 (275-295); Potassium 4.2 mMol/L (3.4-5.1); Sodium 139 mMol/L (136-145); Total Protein 5.6 gm/dL (5.7-8.2); eGFR > 60 See Note
--- NOTE | 2024-11-09 09:00 | XR_ITS ---
Examination: Right femur 5 views Fluoroscopy Exam date and time: November 09, 2024 1132 hrs. Indications: Acute comminuted fractures distal femur November 06, 2024, operative reduction internal fixation femur fractures today. Findings: Operative reduction internal fixation comminuted fractures distal femur with satisfactory alignment Fluoroscopy 1 minute 49 seconds radiation dose 12.199 milligray 5 spot fluoroscopic femur films Impression: Operative reduction internal fixation comminuted fracture distal femur with satisfactory alignment
--- NOTE | 2024-11-09 09:00 | PC.NURSE ---
Upon morning assessment, patient had cardboard and tape on fractured leg. Left in place until MD notified. Patient taken to surgery before hospitalist rounded.
--- NOTE | 2024-11-09 09:54 | ESPR_ITS ---
Documentation for date of: 11/09/24 Subjective Subjective Interval history: pt comfortable Exam Vital Signs Temp Pulse Resp BP Pulse Ox O2 Del Method O2 Flow Rate 97.7 F 78 16 120/74 96 Room Air 2 11/09/24 08:00 11/09/24 08:00 11/09/24 08:00 11/09/24 08:00 11/09/24 08:00 11/09/24 08:00 11/07/24 13:26 Routine HEENT Exam Head: Present normocephalic and atraumatic Eye: Present EOMI and PERRL ENT: Present mucous membranes moist Routine Neck Exam Neck: Present supple and trachea midline Routine Respiratory Exam Respiratory: Present chest non-tender, lungs clear, normal breath sounds and no resp distress Routine Cardiovascular Exam Cardiovascular: Present RRR Routine Abdominal Exam Abdominal: Present soft and normoactive bowel sounds Routine Extremities Exam Extremities: Present full ROM Routine Skin Exam Skin: Present intact, dry and warm Routine Neurological Exam Neurological: Present alert, oriented X3 and CN II-XII intact Routine Psychiatric Exam Psychiatric: Present normal affect and normal thought process Objective Labs 11/09/24 05:04 11/09/24 05:04 Labs: Laboratory Results - last 24 hr 11/06/24 11/09/24 08:15 05:04 WBC 11.4 H D RBC 3.99 L Hgb 9.4 L Hct 31.6 L MCV 79 L MCH 23.6 L MCHC 29.7 L RDW Std Deviation 52.6 H Plt Count 165 D Neut % (Auto) 81 H Lymph % (Auto) 9 L [place] % (Auto) 10 Eos % (Auto) 0 Baso % (Auto) 0 Neut # (Auto) 9.2 H Lymph # (Auto) 1.1 [place] # (Auto) 1.1 H Eos # (Auto) 0.0 Baso # (Auto) 0.0 Immature Gran # (Auto) 0.04 H Absolute Nucleated RBC 0.00 Immature Gran % 0 Nucleated RBC % 0 Sodium 139 Potassium 4.2 D Chloride 107 Carbon Dioxide 24.5 Anion Gap 8 BUN 10 Creatinine 0.8 Estim Creat Clear Calc 80.8 eGFR > 60 BUN/Creatinine Ratio 13 Glucose 152 H D Calculated Osmolality 279 Calcium 8.0 L Corrected Calcium 8.6 Phosphorus 3.0 Magnesium 2.0 Total Bilirubin 0.6 AST 15 ALT 12 Alkaline Phosphatase 122 H Total Protein 5.6 L Albumin 3.3 L Globulin 2.3 Albumin/Globulin Ratio 1.4 Blood Type AB Positive Antibody Screen NEGATIVE Crossmatch See Detail Blood Bank Wristband ID Yes ABG Interpretation ABG results: 11/06/24 05:05 ABG pH 7.40 ABG pCO2 37 ABG pO2 101 ABG HCO3 23 ABG O2 Saturation 98 ABG Base Excess -2 Assessment & Plan A&P Narrative ok for surgery Time Spent With Patient Time: Total time spent is greater than 50% in coordination of care (as documented) at patient's floor/unit and/or counseling patient:
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
--- NOTE | 2024-11-09 12:15 | ESOP_ITS ---
Date of Procedure 11/09/24 Pre Op Diagnosis Fracture right distal femur. Status post right hip hemiarthroplasty Post Op Diagnosis Same Procedure ORIF with a right distal femur interlocking plate. 12 hole hplate. Synthes implant Findings Referral dictation Procedure Description Patient was given general endotracheal anesthesia. Once satisfactory anesthesia achieved then intravenous antibiotics was given. Part was thoroughly prepped and draped. Fracture was checked under C arm. Skin incision was made from the knee joint on the lateral side extending proximally for about 3 to 4 inches and distally Marilyn for further couple of inches. Deeper dissection carried out. Tensor fascia georges was incised. Following that a 12 hole plate was slighted from retrograde up on the. The lateral side of the femur. Once satisfactory patient was achieved then with the help of reduction clamp the fracture was reduced and checked under C arm in both AP and lateral and found to be good The fracture was comminuted in nature. Following that the central hole at the distal end was drilled and appropriate size conical screw was placed. 1 more interlocking screw was placed distally. Running that proximally 1 cortical screw placed and 3 locking screw was placed. The tip of the plate was proximal to the tip of the already placed hemiarth roplasty. That would sealed the femur from the stress fracture. Wound was irrigated with antibiotic solution every 4 to 5 minutes Following that 3 more interlocking screw was placed distally. Patient was repeatedly checked and found to be good The soft tissue was closed with 1 Vicryl in an interrupted fashion. The subcu tissue was closed with 2-0 Vicryl in interrupted fashion. The skin was closed with ramakrishna Patient tolerated procedure well. Estimated blood loss 100 mL Rogness in this case is fair to good Anesthesia GETA and other Pathology / specimen None Estimated Blood Loss 50 Surgeon Mo See MD Surgical Staff Operation Date: 11/09/24 09:00 Case Staff Anesthesiologist: Roel Steinberg RN First Assistant: Vinicius Singh
--- NOTE | 2024-11-09 12:15 | XR_ITS ---
Examination: Right knee 2 views Technique: AP lateral right knee 2 views Exam date and time: November 09, 2024 1258 hrs. Comparison November 09, 2024 1132 hrs. Indications: Operative reduction internal fixation fracture distal femur Satisfactory alignment compared to the neck 2024 exam Impression: Operative reduction internal fixation comminuted fracture distal femur with satisfactory alignment
--- NOTE | 2024-11-09 12:52 | SUR.PHASEI ---
1239 To PACU eyes closed resting comfortably,no complaints no s/s of distress note continue to monitor pt vital signs and status/.
--- NOTE | 2024-11-09 12:55 | XR_ITS ---
Examination: Right femur 2 views Technique one AP lateral right femur 2 views Exam date and time: November 09, 2024 1256 hrs. Indications: Acute severely comminuted fracture distal femoral shaft November 06, 2024 postop reduction internal fixation. Fractures Findings: Postop reduction internal fixation fractures distal femur Satisfactory alignment Total right hip arthroplasty with satisfactory alignment Impression: Postop reduction internal fixation fractures distal femur with satisfactory alignment
--- NOTE | 2024-11-09 13:30 | SUR.PHASEI ---
1320 Awake, following simple commands transfer to room 268 in stable condition ,no complaints, no change to right lower leg dressing/leg immobilizer.
[2024-11-09] MEDS: SENNA TABLET 1 TAB PO (14:05)
[2024-11-09] MEDS: ceFAZolin/D5W 1 GM IVPB 1 GM/50 ML BAG IV ×2 (14:05→21:38)
[2024-11-09] MEDS: DOCUSATE SOD 100 MG CAPSULE PO (14:05)
[2024-11-09] MEDS: TAMSULOSIN HCL 0.4 MG CAPSULE PO (14:05)
[2024-11-09] MEDS: METOPROLOL SUCCINATE XL 25 MG TABCR PO (14:05)
[2024-11-09] MEDS: MORPHINE SULF INJ 10 MG/ML VIAL 2 MG IVP (17:53)
[2024-11-09] MEDS: ACETAMINOPHEN IVPB 1,000 MG/100 ML VIAL 250 MG IV (17:55)
--- NOTE | 2024-11-09 21:53 | PC.NURSE ---
REPORT GIVEN TO ARTURO FOR TRANSFER TO RM 378
--- NOTE | 2024-11-09 22:07 | PC.NURSE ---
Report received, pt arrived to room 378 via bed. Pt oriented to room call light placed within reach. Attempted to remove sheet from underneath pt (pt had surgery today) pt refused to move, stated You are not moving me unless you put me out, discussed with pt pain meds ordered pt refuses to move.
--- NOTE | 2024-11-09 22:45 | PC.NURSE ---
When administering pt percocet informed pt when medication can be administered again-board updated. Pt upset stated, that is not going to work, I take it at home every 4-6 hours and downstairs I was getting every six hours, discussed with pt that was how medication was ordered, pt request MD be contacted regarding medication. Contacted Dr. Hogan regarding pt pain medication order, no new orders, RN to speak with pt order was placed such way related to Tylenol that had been administered need to not give too much or over max daily Tylenol dose.
[2024-11-10] VITALS (11 sets, daily range): BP systolic 103–140; BP diastolic 60–86; PULSE 63–86; RESP 16–19; TEMP 35.8–37.1; O2SAT 93–97; BMI 11.0
--- NOTE | 2024-11-10 04:10 | PC.NURSE ---
Pt called requested pain medication, stated he can not wait until next due time 0615, stated, you need to call the doctor. Pt refused morphine stated that it did not work. Called spoke with Dr. Jhoan MD to change frequency back to q6prn as it was before.
[2024-11-10] MEDS: oxyCODONE/APAP 5/325 TABLET 2 TAB PO ×4 (04:18→22:55)
--- NOTE | 2024-11-10 05:56 | PC.NURSE ---
All night pt continues to refuse to turn despite being educated, unable to remove sheets from under him and reposition.
--- NOTE | 2024-11-10 05:58 | PC.NURSE ---
Percocet given for c/o 04/10 pain, pt refuses to take morphine
[2024-11-10 06:45] LABS: Basophils % (Auto) 0 % (0-2.5); Eosinophils % (Auto) 0 % (0-10); Hematocrit 25.4 % (41.0-53.0); Immature Granulocytes % (Auto) 1 % (0-0); Immature Granulocytes Auto 0.08 Thou/mm3 (0.00-0.00); Lymphocytes # (Auto) 0.8 Thou/mm3 (1.0-4.8); Lymphocytes % (Auto) 8 % (10-50); Mean Corpuscular HGB Conc 31.9 g/dl (31.0-37.0); Mean Corpuscular Hemoglobin 24.1 pg (25.0-35.0); Mean Corpuscular Volume 76 fL (80-100); Monocytes # (Auto) 0.9 Thou/mm3 (0.0-0.8); Monocytes % (Auto) 9 % (0-12); Neutrophils # (Auto) 7.9 Thou/mm3 (1.8-7.7); Neutrophils % (Auto) 82 % (37-80); Nucleated Red Blood Cell % 0 /100 WBC (0); Platelet Count 156 Thou/mm3 (140-440); RDW Standard Deviation 49.5 fL (35.1-43.9); Red Blood Count 3.36 Miln/mm3 (4.50-5.90); White Blood Count 9.6 Thou/mm3 (3.8-10.6)
[2024-11-10 06:47] LABS: Hemoglobin 8.1 g/dL (13.5-16.0)
[2024-11-10 07:00] LABS: Anion Gap 6 (7-16); Blood Urea Nitrogen 13 mg/dL (9-23); Carbon Dioxide 25.4 mMol/L (20.0-31.0); Chloride 106 mMol/L (98-107); Potassium 4.8 mMol/L (3.4-5.1); Sodium 137 mMol/L (136-145)
[2024-11-10 07:01] LABS: Alanine Aminotransferase 11 U/L (10-49); Albumin, Serum 2.8 gm/dL (3.4-4.8); Albumin/Globulin Ratio 1.3 (1.2-2.2); Alkaline Phosphatase 91 U/L (46-116); Aspartate Amino Transferase 16 U/L (0-34); BUN/Creatinine Ratio 19 Ratio (12-20); Bilirubin,Total 0.5 mg/dL (0.3-1.2); Calcium 7.9 mg/dL (8.3-10.6); Calcium (Corrected) 8.9 mg/dL (8.5-10.1); Creatinine (Component) 0.7 mg/dL (0.6-1.3); Estimated Creatinine Clearance 92.3 mL/min (>60); Globulin 2.1 gm/dL (2.3-3.5); Glucose 204 mg/dL (74-106); Magnesium 1.8 mg/dL (1.6-2.6); Osmolality,Calculated 279 (275-295); Phosphorous 3.5 mg/dL (2.4-5.1); Total Protein 4.9 gm/dL (5.7-8.2); eGFR > 60 See Note
--- NOTE | 2024-11-10 08:10 | PD.IMPROG ---
Documentation for date of: 11/10/24 Subjective Subjective Interval history: s/p surgrey for hip fracrture Exam Vital Signs Temp Pulse Resp BP Pulse Ox O2 Del Method O2 Flow Rate 97.9 F 63 17 140/86 H 96 Room Air 2 11/10/24 04:00 11/10/24 05:53 11/10/24 04:00 11/10/24 04:00 11/10/24 04:00 11/10/24 04:00 11/09/24 13:15 Routine HEENT Exam Head: Present normocephalic and atraumatic Eye: Present EOMI and PERRL ENT: Present mucous membranes moist Routine Neck Exam Neck: Present supple and trachea midline Routine Respiratory Exam Respiratory: Present chest non-tender, lungs clear, normal breath sounds and no resp distress Routine Cardiovascular Exam Cardiovascular: Present RRR Routine Abdominal Exam Abdominal: Present soft and normoactive bowel sounds Routine Extremities Exam Extremities: Present full ROM Routine Skin Exam Skin: Present intact, dry and warm Routine Neurological Exam Neurological: Present alert, oriented X3 and CN II-XII intact Routine Psychiatric Exam Psychiatric: Present normal affect and normal thought process Objective Labs 11/10/24 05:48 11/10/24 05:48 Labs: Laboratory Results - last 24 hr 11/06/24 11/10/24 08:15 05:48 WBC 9.6 RBC 3.36 L Hgb 8.1 L Hct 25.4 L MCV 76 L MCH 24.1 L MCHC 31.9 RDW Std Deviation 49.5 H Plt Count 156 Neut % (Auto) 82 H Lymph % (Auto) 8 L Bulloch % (Auto) 9 Eos % (Auto) 0 Baso % (Auto) 0 Neut # (Auto) 7.9 H Lymph # (Auto) 0.8 L Bulloch # (Auto) 0.9 H Eos # (Auto) 0.0 Baso # (Auto) 0.0 Immature Gran # (Auto) 0.08 H Absolute Nucleated RBC 0.00 Immature Gran % 1 H Nucleated RBC % 0 Sodium 137 Potassium 4.8 D Chloride 106 Carbon Dioxide 25.4 Anion Gap 6 L BUN 13 Creatinine 0.7 Estim Creat Clear Calc 92.3 eGFR > 60 BUN/Creatinine Ratio 19 Glucose 204 H D Calculated Osmolality 279 Calcium 7.9 L Corrected Calcium 8.9 Phosphorus 3.5 Magnesium 1.8 Total Bilirubin 0.5 AST 16 ALT 11 Alkaline Phosphatase 91 D Total Protein 4.9 L Albumin 2.8 L D Globulin 2.1 L Albumin/Globulin Ratio 1.3 Crossmatch See Detail ABG Interpretation ABG results: 11/06/24 05:05 ABG pH 7.40 ABG pCO2 37 ABG pO2 101 ABG HCO3 23 ABG O2 Saturation 98 ABG Base Excess -2 Assessment & Plan A&P Narrative continue post op caree Time Spent With Patient Time: Total time spent is greater than 50% in coordination of care (as documented) at patient's floor/unit and/or counseling patient:
[2024-11-10] MEDS: METOPROLOL SUCCINATE XL 25 MG TABCR PO (08:31)
[2024-11-10] MEDS: TAMSULOSIN HCL 0.4 MG CAPSULE PO (08:32)
[2024-11-10] MEDS: DULoxetine HCL 30 MG CAPSULE PO (11:27)
[2024-11-10] MEDS: IRON SUCROSE CPLX INJ 20 MG/ML VIAL 5 ML 200 MG IVP (11:28)
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
[2024-11-11] VITALS (8 sets, daily range): BP systolic 129–155; BP diastolic 69–86; PULSE 64–90; RESP 18–20; TEMP 36.2–36.4; O2SAT 96; BMI 28.7; BMI 12.0
--- NOTE | 2024-11-11 04:10 | PC.NURSE ---
Patient has not had a bowel movement since 11/05/24. Asked Pt if he would like to take anything for constipation. Pt replied, No, I am fine. Will let oncoming nurse know as Pt has scheduled meds for bowel management during AM shift.
[2024-11-11] MEDS: oxyCODONE/APAP 5/325 TABLET 2 TAB PO ×2 (05:15→12:34)
[2024-11-11 05:58] LABS: Basophils % (Auto) 0 % (0-2.5); Eosinophils % (Auto) 0 % (0-10); Hematocrit 26.8 % (41.0-53.0); Immature Granulocytes % (Auto) 1 % (0-0); Immature Granulocytes Auto 0.07 Thou/mm3 (0.00-0.00); Lymphocytes # (Auto) 1.3 Thou/mm3 (1.0-4.8); Lymphocytes % (Auto) 16 % (10-50); Mean Corpuscular HGB Conc 31.3 g/dl (31.0-37.0); Mean Corpuscular Hemoglobin 24.1 pg (25.0-35.0); Mean Corpuscular Volume 77 fL (80-100); Monocytes # (Auto) 0.8 Thou/mm3 (0.0-0.8); Monocytes % (Auto) 10 % (0-12); Neutrophils # (Auto) 5.9 Thou/mm3 (1.8-7.7); Neutrophils % (Auto) 73 % (37-80); Nucleated Red Blood Cell # 0.03 Thou/mm3 (0.00-0.00); Nucleated Red Blood Cell % 0 /100 WBC (0); Platelet Count 169 Thou/mm3 (140-440); RDW Standard Deviation 53.4 fL (35.1-43.9); Red Blood Count 3.49 Miln/mm3 (4.50-5.90); White Blood Count 8.2 Thou/mm3 (3.8-10.6)
[2024-11-11 06:28] LABS: Hemoglobin 8.4 g/dL (13.5-16.0)
[2024-11-11 06:37] LABS: Alanine Aminotransferase 10 U/L (10-49); Albumin/Globulin Ratio 1.4 (1.2-2.2); Alkaline Phosphatase 90 U/L (46-116); Anion Gap 5 (7-16); Aspartate Amino Transferase 16 U/L (0-34); BUN/Creatinine Ratio 19 Ratio (12-20); Bilirubin,Total 0.5 mg/dL (0.3-1.2); Blood Urea Nitrogen 13 mg/dL (9-23); Calcium (Corrected) 8.8 mg/dL (8.5-10.1); Carbon Dioxide 28.2 mMol/L (20.0-31.0); Chloride 103 mMol/L (98-107); Creatinine (Component) 0.7 mg/dL (0.6-1.3); Estimated Creatinine Clearance 101.8 mL/min (>60); Globulin 2.2 gm/dL (2.3-3.5); Glucose 96 mg/dL (74-106); Magnesium 1.7 mg/dL (1.6-2.6); Osmolality,Calculated 272 (275-295); Phosphorous 2.9 mg/dL (2.4-5.1); Potassium 4.2 mMol/L (3.4-5.1); Sodium 136 mMol/L (136-145); Total Protein 5.2 gm/dL (5.7-8.2); eGFR > 60 See Note
[2024-11-11] MEDS: TAMSULOSIN HCL 0.4 MG CAPSULE PO (08:08)
[2024-11-11] MEDS: METOPROLOL SUCCINATE XL 25 MG TABCR PO (08:08)
[2024-11-11] MEDS: IRON SUCROSE CPLX INJ 20 MG/ML VIAL 5 ML 200 MG IVP (08:09)
[2024-11-11] MEDS: DULoxetine HCL 30 MG CAPSULE PO (08:09)
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
--- NOTE | 2024-11-11 11:22 | PC.NURSE ---
Patient refused lactulose and miralax. Will continue to monitor patient.
--- NOTE | 2024-11-11 16:50 | PC.NURSE ---
report was given to nurse Shearer at [facility]
[2024-11-11] MEDS: MORPHINE SULF INJ 10 MG/ML VIAL 4 MG IV (17:26)
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
== END 2024-11-11 18:12 | disposition skilled nursing facility (03) | DRG 481 ==
LOC: SERX 04:56 → SERHOLD 09:00 → S2NX 17:03 → S3SX 11-09 22:10
PROVIDERS: Orthopaedic Surgery; Student in an Organized Health Care Education/Training Program; Admitting Provider Internal Medicine; Emergency Provider Emergency Medicine; Visit Provider Internal Medicine
PROC: 0QSB04Z Reposition Right Lower Femur with Internal Fixation Device, Open Approach (ICD-10-PCS; principal; 2024-11-09 09:00)
DX: S72.391A Other fracture of shaft of right femur, initial encounter for closed fracture (principal); F11.20 Opioid dependence, uncomplicated; I50.32 Chronic diastolic (congestive) heart failure; I48.19 Other persistent atrial fibrillation; M54.9 Dorsalgia, unspecified; G89.29 Other chronic pain; I11.0 Hypertensive heart disease with heart failure; N40.0 Benign prostatic hyperplasia without lower urinary tract symptoms; D50.9 Iron deficiency anemia, unspecified; G89.4 Chronic pain syndrome; D69.6 Thrombocytopenia, unspecified; I25.10 Atherosclerotic heart disease of native coronary artery without angina pectoris; F17.200 Nicotine dependence, unspecified, uncomplicated; Z95.5 Presence of coronary angioplasty implant and graft; Z96.641 Presence of right artificial hip joint; Z79.899 Other long term (current) drug therapy; Z79.01 Long term (current) use of anticoagulants; W01.0XXA Fall on same level from slipping, tripping and stumbling without subsequent striking against object, initial encounter
CPT/HCPCS: 36415; 36600; 70450; 71045; 72125; 73502; 73552; 73562; 73590; 76000; 80053; 80307; 81001; 82803; 83735; 84100; 84484; 85025; 85610; 85730; 86850; 86900; 86901; 86923; 93005; 93225; 93306; 96365; 96366; 96375; 97163; 99285; J0131; J0689; J0690; J1580; J1756; J2250; J2270; J2405; J2704; J2795; J3010; J3475; J3490; J7030; P9016; A9270

== ENCOUNTER 2024-11-17 09:08 | Emergency (ER) | payer MEDICARE, BC, SELFPAY ==
[2024-11-17] VITALS (28 sets, daily range): BP systolic 97–141; BP diastolic 54–99; PULSE 67–93; RESP 15–20; TEMP 36.6–36.9; O2SAT 76–100; BMI 21.9
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
[2024-11-17 10:03] LABS: Basophils % (Auto) 0 % (0-2.5); Eosinophils % (Auto) 0 % (0-10); Hematocrit 28.4 % (41.0-53.0); Immature Granulocytes % (Auto) 1 % (0-0); Immature Granulocytes Auto 0.07 Thou/mm3 (0.00-0.00); Lymphocytes # (Auto) 0.5 Thou/mm3 (1.0-4.8); Lymphocytes % (Auto) 5 % (10-50); Mean Corpuscular HGB Conc 30.3 g/dl (31.0-37.0); Mean Corpuscular Hemoglobin 24.5 pg (25.0-35.0); Mean Corpuscular Volume 81 fL (80-100); Monocytes # (Auto) 0.6 Thou/mm3 (0.0-0.8); Monocytes % (Auto) 6 % (0-12); Neutrophils # (Auto) 8.8 Thou/mm3 (1.8-7.7); Neutrophils % (Auto) 87 % (37-80); Nucleated Red Blood Cell % 0 /100 WBC (0); Platelet Count 354 Thou/mm3 (140-440); RDW Standard Deviation 65.4 fL (35.1-43.9); Red Blood Count 3.51 Miln/mm3 (4.50-5.90); White Blood Count 10.1 Thou/mm3 (3.8-10.6)
[2024-11-17 10:06] LABS: INR 1.3 (0.9-1.3); Partial Thromboplastin Time 30.8 Seconds (22.0-36.0); Prothrombin Time 13.5 Seconds (9.0-12.2)
[2024-11-17 10:14] LABS: Hemoglobin 8.6 g/dL (13.5-16.0)
[2024-11-17 10:24] LABS: Alanine Aminotransferase 12 U/L (10-49); Albumin, Serum 3.4 gm/dL (3.4-4.8); Albumin/Globulin Ratio 1.4 (1.2-2.2); Alkaline Phosphatase 136 U/L (46-116); Anion Gap 8 (7-16); Aspartate Amino Transferase 22 U/L (0-34); BUN/Creatinine Ratio 14 Ratio (12-20); Bilirubin,Total 0.9 mg/dL (0.3-1.2); Blood Urea Nitrogen 11 mg/dL (9-23); Calcium 8.5 mg/dL (8.3-10.6); Carbon Dioxide 25.2 mMol/L (20.0-31.0); Chloride 100 mMol/L (98-107); Creatinine (Component) 0.8 mg/dL (0.6-1.3); Estimated Creatinine Clearance 77.1 mL/min (>60); Globulin 2.5 gm/dL (2.3-3.5); Glucose 141 mg/dL (74-106); Osmolality,Calculated 267 (275-295); Potassium 4.1 mMol/L (3.4-5.1); Sodium 133 mMol/L (136-145); Total Protein 5.9 gm/dL (5.7-8.2); eGFR > 60 See Note
[2024-11-17] MEDS: LIDOCAINE JELLY 2% (Urojet) 10 ML TUBE TOP ×2 (10:40→12:15)
[2024-11-17 11:41] LABS: Collection Type, Urine Catheter; Squamous Epithelial Cell,Urine 0 /hpf (0-5)
[2024-11-17 12:18] LABS: Bilirubin,Urine Negative (Negative); Blood,Urine 3+ (Negative); Glucose, Urine Negative (Negative); Ketones,Urine Negative (Negative); Leukocyte Esterase,Urine Positive (Negative); Nitrite,Urine Negative (Negative); PH,Urine 6.5 (5.0-7.0); Protein,Urine 2+ (Neg - Trace); RBC,Urine 6182 /hpf (0-3); Specific Gravity,Urine 1.018 (1.001-1.035); Urobilinogen,Urine Negative mg/dL (0.0-1.0); WBC,Urine 19 /hpf (0-5)
[2024-11-17 12:24] LABS: Clarity,Urine Bloody (Clear/Hazy); Color,Urine Red (Lt Yel-Yel)
--- NOTE | 2024-11-17 12:32 | PC.NURSE ---
24F coude fajardo Placed with minimal difficulty
--- NOTE | 2024-11-17 13:45 | PC.NURSE ---
Roberts Irrigated with 2500 of Sterile water. Large clots and bloody drainage released. Urine that is now draining, is clear with no clots or sediments at this time
--- NOTE | 2024-11-17 15:38 | PC.NURSE ---
Report given to STUART Muniz at SNF. Awaiting Transportation back to facility
--- NOTE | 2024-11-17 16:06 | PC.CC ---
[facility] spoke with assigned RN who reported the pt is ready for d/c and needs to return to [facility]. Receptionist Telephone Operator called SNF and asked if they could provide transportation and they said, No. Receptionist Telephone Operator contacted [employer] and his medical coverage does not cover medical transportation. Receptionist Telephone Operator contacted [facility] and spoke with Annabel to arranged a p/u ETA [id number].
== END 2024-11-17 19:15 | disposition home or self-care (01) ==
PROVIDERS: Emergency Provider Emergency Medicine; PCP Physician Assistant
DX: R31.9 Hematuria, unspecified (principal); R33.9 Retention of urine, unspecified
CPT/HCPCS: 51702; 36415; 80053; 81001; 85025; 85610; 85730; 99283

== ENCOUNTER → 2025-02-27 | Outpatient (CLI) | payer MEDICARE, BC, SELFPAY | END | disposition home or self-care (01) | PROVIDERS: PCP Physician Assistant; Referring Provider Physician Assistant; Visit Provider Surgery | DX: S81.802A Unspecified open wound, left lower leg, initial encounter (principal); S81.801A Unspecified open wound, right lower leg, initial encounter; X58.XXXA Exposure to other specified factors, initial encounter; I50.9 Heart failure, unspecified; M19.91 Primary osteoarthritis, unspecified site; I25.10 Atherosclerotic heart disease of native coronary artery without angina pectoris; M10.9 Gout, unspecified | CPT/HCPCS: 11042; 29580; 99213; A9270; G0463 ==

== ENCOUNTER → 2025-03-06 | Outpatient (CLI) | payer MEDICARE, BC, SELFPAY | END | disposition home or self-care (01) | LOC: SWHD 08:14 | PROVIDERS: PCP Internal Medicine Hospice and Palliative Medicine; Referring Provider Internal Medicine Hospice and Palliative Medicine; Visit Provider Surgery | DX: I87.333 Chronic venous hypertension (idiopathic) with ulcer and inflammation of bilateral lower extremity (principal); L97.822 Non-pressure chronic ulcer of other part of left lower leg with fat layer exposed; L97.811 Non-pressure chronic ulcer of other part of right lower leg limited to breakdown of skin | CPT/HCPCS: 29580; A9270 ==

== ENCOUNTER → 2025-03-09 | Outpatient (CLI) | payer MEDICARE, BC, SELFPAY ==
[2025-03-09 14:26] LABS: Alanine Aminotransferase 9 U/L (10-49); Albumin, Serum 3.4 gm/dL (3.4-4.8); Albumin/Globulin Ratio 1.6 (1.2-2.2); Alkaline Phosphatase 110 U/L (46-116); Anion Gap 10 (7-16); Aspartate Amino Transferase 21 U/L (0-34); BUN/Creatinine Ratio 11 Ratio (12-20); Bilirubin,Total 0.3 mg/dL (0.3-1.2); Blood Urea Nitrogen 10 mg/dL (9-23); Calcium 8.6 mg/dL (8.3-10.6); Calcium (Corrected) 9.1 mg/dL (8.5-10.1); Carbon Dioxide 24.1 mMol/L (20.0-31.0); Cardiac Risk Estimate 2.2 RATIO (4.0-6.7); Chloride 106 mMol/L (98-107); Cholesterol 78 mg/dL (132-200); Creatinine (Component) 0.9 mg/dL (0.6-1.3); Globulin 2.1 gm/dL (2.3-3.5); Glucose 161 mg/dL (74-106); HDL Cholesterol 36 mg/dL (40-60); LDL Cholesterol,Calculated 29 mg/dL (0-130); Osmolality,Calculated 281 (275-295); Potassium 4.1 mMol/L (3.4-5.1); Sodium 140 mMol/L (136-145); Total Protein 5.5 gm/dL (5.7-8.2); Triglycerides 66 mg/dL (30-150); eGFR > 60 See Note
[2025-03-09 14:39] LABS: Creatinine MALB Rnd Ur 37 mg/dL (30-125); Microalbumin, Random Urine < 3 mg/L (0-300)
== END | disposition home or self-care (01) ==
LOC: SLDO 12:02
PROVIDERS: PCP Internal Medicine Hospice and Palliative Medicine; Referring Provider Internal Medicine Hospice and Palliative Medicine; Visit Provider Internal Medicine Hospice and Palliative Medicine
DX: E78.5 Hyperlipidemia, unspecified (principal)
CPT/HCPCS: 36415; 80053; 80061; 82043; 82570

== ENCOUNTER → 2025-03-10 | Outpatient (CLI) | payer MEDICARE, BC, SELFPAY ==
--- NOTE | 2025-03-10 | XR_ITS ---
Examination: Right femur 2 views Technique one AP lateral right femur 2 views Date and time: March 10, 2025 0929 hours, comparison November 09, 2024 INDICATIONS: History femur fracture postop reduction internal fixation FINDINGS: Significant partial healing fracture distal femoral shaft with stable and satisfactory alignment Orthopedic hardware satisfactory position IMPRESSION: Partial healing fractures distal femoral shaft with stable and satisfactory alignment
--- NOTE | 2025-03-10 08:56 | XR_ITS ---
Examination: Knee, right , 3 views Technique: Knee AP, lateral, oblique 3 views Date and time of exam: March 10, 2025 0923 hours, comparison November 09, 2024 INDICATIONS: History postop surgical reduction fracture distal femur 4 months ago FINDINGS: Significant healing fracture distal femoral shaft with stable and satisfactory alignment Orthopedic hardware satisfactory position IMPRESSION: Significant healing fracture distal femoral shaft with stable and satisfactory alignment.
== END | disposition home or self-care (01) ==
PROVIDERS: PCP Orthopaedic Surgery; Referring Provider Orthopaedic Surgery; Visit Provider Orthopaedic Surgery
DX: S72.301A Unspecified fracture of shaft of right femur, initial encounter for closed fracture (principal); X58.XXXA Exposure to other specified factors, initial encounter; Z98.890 Other specified postprocedural states
CPT/HCPCS: 73552; 73562

== ENCOUNTER → 2025-03-13 | Outpatient (CLI) | payer MEDICARE, BC, SELFPAY | END | disposition home or self-care (01) | LOC: SWHD 09:52 | PROVIDERS: PCP Internal Medicine Hospice and Palliative Medicine; Referring Provider Internal Medicine Hospice and Palliative Medicine; Visit Provider Surgery | DX: I87.333 Chronic venous hypertension (idiopathic) with ulcer and inflammation of bilateral lower extremity (principal); L97.822 Non-pressure chronic ulcer of other part of left lower leg with fat layer exposed; L97.811 Non-pressure chronic ulcer of other part of right lower leg limited to breakdown of skin | CPT/HCPCS: 29580; A9270 ==

== ENCOUNTER → 2025-03-20 | Outpatient (CLI) | payer MEDICARE, BC, SELFPAY | END | disposition home or self-care (01) | LOC: SWHD 08:04 | PROVIDERS: PCP Internal Medicine Hospice and Palliative Medicine; Referring Provider Internal Medicine Hospice and Palliative Medicine; Visit Provider Student in an Organized Health Care Education/Training Program | DX: I87.333 Chronic venous hypertension (idiopathic) with ulcer and inflammation of bilateral lower extremity (principal); L97.822 Non-pressure chronic ulcer of other part of left lower leg with fat layer exposed; L97.811 Non-pressure chronic ulcer of other part of right lower leg limited to breakdown of skin | CPT/HCPCS: 29580; A9270 ==

== ENCOUNTER → 2025-03-27 | Outpatient (CLI) | payer MEDICARE, BC, SELFPAY | END | disposition home or self-care (01) | LOC: SWHD 08:16 | PROVIDERS: PCP Internal Medicine Hospice and Palliative Medicine; Referring Provider Internal Medicine Hospice and Palliative Medicine; Visit Provider Physician Assistant | DX: I87.333 Chronic venous hypertension (idiopathic) with ulcer and inflammation of bilateral lower extremity (principal); L97.822 Non-pressure chronic ulcer of other part of left lower leg with fat layer exposed; L97.811 Non-pressure chronic ulcer of other part of right lower leg limited to breakdown of skin | CPT/HCPCS: 29580; A9270 ==

== ENCOUNTER → 2025-04-03 | Outpatient (CLI) | payer MEDICARE, BC, SELFPAY | END | disposition home or self-care (01) | LOC: SWHD 09:18 | PROVIDERS: PCP Internal Medicine Hospice and Palliative Medicine; Referring Provider Internal Medicine Hospice and Palliative Medicine; Visit Provider Student in an Organized Health Care Education/Training Program | DX: I87.333 Chronic venous hypertension (idiopathic) with ulcer and inflammation of bilateral lower extremity (principal); L97.822 Non-pressure chronic ulcer of other part of left lower leg with fat layer exposed; L97.811 Non-pressure chronic ulcer of other part of right lower leg limited to breakdown of skin; I25.10 Atherosclerotic heart disease of native coronary artery without angina pectoris; I82.409 Acute embolism and thrombosis of unspecified deep veins of unspecified lower extremity; M19.91 Primary osteoarthritis, unspecified site; M10.9 Gout, unspecified | CPT/HCPCS: 97597; A9270 ==

== ENCOUNTER → 2025-04-10 | Outpatient (CLI) | payer MEDICARE, BC, SELFPAY | END | disposition home or self-care (01) | LOC: SWHD 09:57 | PROVIDERS: PCP Internal Medicine Hospice and Palliative Medicine; Referring Provider Internal Medicine Hospice and Palliative Medicine; Visit Provider Surgery | DX: I87.333 Chronic venous hypertension (idiopathic) with ulcer and inflammation of bilateral lower extremity (principal); L97.822 Non-pressure chronic ulcer of other part of left lower leg with fat layer exposed; L97.811 Non-pressure chronic ulcer of other part of right lower leg limited to breakdown of skin; I25.10 Atherosclerotic heart disease of native coronary artery without angina pectoris; I82.409 Acute embolism and thrombosis of unspecified deep veins of unspecified lower extremity; M19.91 Primary osteoarthritis, unspecified site; M10.9 Gout, unspecified | CPT/HCPCS: 97597; A9270 ==

== ENCOUNTER → 2025-04-17 | Outpatient (CLI) | payer MEDICARE, BC, SELFPAY | END | disposition home or self-care (01) | LOC: SWHD 09:07 | PROVIDERS: PCP Internal Medicine Hospice and Palliative Medicine; Referring Provider Internal Medicine Hospice and Palliative Medicine; Visit Provider Physician Assistant | DX: I87.332 Chronic venous hypertension (idiopathic) with ulcer and inflammation of left lower extremity (principal); L97.822 Non-pressure chronic ulcer of other part of left lower leg with fat layer exposed; S81.002A Unspecified open wound, left knee, initial encounter; X58.XXXA Exposure to other specified factors, initial encounter; I25.10 Atherosclerotic heart disease of native coronary artery without angina pectoris; M19.91 Primary osteoarthritis, unspecified site; M10.9 Gout, unspecified | CPT/HCPCS: 29581; A9270 ==

== ENCOUNTER → 2025-05-08 | Outpatient (CLI) | payer MEDICARE, BC, SELFPAY | END | disposition home or self-care (01) | LOC: SWHD 09:23 | PROVIDERS: PCP Internal Medicine Hospice and Palliative Medicine; Referring Provider Internal Medicine Hospice and Palliative Medicine; Visit Provider Physician Assistant | DX: I87.332 Chronic venous hypertension (idiopathic) with ulcer and inflammation of left lower extremity (principal); L97.822 Non-pressure chronic ulcer of other part of left lower leg with fat layer exposed; S81.002A Unspecified open wound, left knee, initial encounter; X58.XXXA Exposure to other specified factors, initial encounter; I25.10 Atherosclerotic heart disease of native coronary artery without angina pectoris; I82.409 Acute embolism and thrombosis of unspecified deep veins of unspecified lower extremity; M19.91 Primary osteoarthritis, unspecified site; M10.9 Gout, unspecified | CPT/HCPCS: 29581 ==

== ENCOUNTER → 2025-05-13 | Outpatient (CLI) | payer MEDICARE, BC, SELFPAY ==
--- NOTE | 2025-05-13 | XR_ITS ---
EXAMINATION: Bilateral wrist 6 views TECHNIQUE: AP oblique lateral each wrist total 6 views Date and time: May 13, 2025, 0958 hours INDICATIONS: Bilateral wrist pain 5 years carpal tunnel surgery on the left history FINDINGS: Severe osteopenia Cystic changes in bilateral carpal bones Soft tissue vascular calcification Moderate narrowing radiocarpal joints Moderate arthritic change carpometacarpal joints IMPRESSION: Bilateral erosive arthritis
--- NOTE | 2025-05-13 09:01 | XR_ITS ---
Examination: Bilateral hands, 6 views. Technique: AP, Oblique, Lateral each hand total 6 views Date and time of exam: May 13, 2025, 0918 hours INDICATIONS: Bilateral hand and wrist pain 5 years. Findings: Severe osteopenia Bilateral differential narrowing metacarpal phalangeal joints most severe right second and third metacarpal phalangeal joints Cystic and erosive changes involving the carpal bones bilaterally No acute fractures No foreign bodies IMPRESSION: Severe osteopenia Findings most consistent with rheumatoid arthritis
== END | disposition home or self-care (01) ==
LOC: CDIM 08:18
PROVIDERS: PCP Internal Medicine Hospice and Palliative Medicine; Referring Provider Orthopaedic Surgery; Visit Provider Nurse Practitioner Gerontology
DX: M85.842 Other specified disorders of bone density and structure, left hand (principal); M85.841 Other specified disorders of bone density and structure, right hand; M13.832 Other specified arthritis, left wrist; M13.831 Other specified arthritis, right wrist
CPT/HCPCS: 73110; 73130

== ENCOUNTER → 2025-05-22 | Outpatient (CLI) | payer MEDICARE, BC, SELFPAY | END | disposition home or self-care (01) | LOC: SWHD 09:18 | PROVIDERS: PCP Internal Medicine Hospice and Palliative Medicine; Referring Provider Internal Medicine Hospice and Palliative Medicine; Visit Provider Surgery | DX: I87.332 Chronic venous hypertension (idiopathic) with ulcer and inflammation of left lower extremity (principal); L97.822 Non-pressure chronic ulcer of other part of left lower leg with fat layer exposed; I25.10 Atherosclerotic heart disease of native coronary artery without angina pectoris; I82.409 Acute embolism and thrombosis of unspecified deep veins of unspecified lower extremity; M19.91 Primary osteoarthritis, unspecified site; M10.9 Gout, unspecified | CPT/HCPCS: 29580; A9270 ==

== ENCOUNTER → 2025-06-05 | Outpatient (CLI) | payer MEDICARE, BC, SELFPAY | END | disposition home or self-care (01) | LOC: SWHD 15:12 | PROVIDERS: PCP Internal Medicine Hospice and Palliative Medicine; Referring Provider Internal Medicine Hospice and Palliative Medicine; Visit Provider Surgery | DX: I87.332 Chronic venous hypertension (idiopathic) with ulcer and inflammation of left lower extremity (principal); L97.822 Non-pressure chronic ulcer of other part of left lower leg with fat layer exposed; S81.002A Unspecified open wound, left knee, initial encounter; X58.XXXA Exposure to other specified factors, initial encounter; I25.10 Atherosclerotic heart disease of native coronary artery without angina pectoris; I82.409 Acute embolism and thrombosis of unspecified deep veins of unspecified lower extremity; M19.91 Primary osteoarthritis, unspecified site; M10.9 Gout, unspecified | CPT/HCPCS: 29580; A9270 ==

== ENCOUNTER → 2025-06-09 | Outpatient (CLI) | payer MEDICARE, BC, SELFPAY ==
--- NOTE | 2025-06-09 09:19 | XR_ITS ---
EXAMINATION: Right femur 2 views TECHNIQUE: AP lateral right femur 2 views Date and time: June 09, 2025, 0954 hours, comparison March 10, 2025 INDICATIONS: History of femur fracture postop surgery 7 months ago. FINDINGS: Total right hip arthroplasty. Satisfactory alignment Postop reduction internal fixation fracture distal femur The femur fracture line is still quite visible Orthopedic hardware satisfactory position IMPRESSION: Recommended CT scan femur follow-up to exclude nonunion at the distal femur fracture site
--- NOTE | 2025-06-09 09:19 | XR_ITS ---
Examination: Knee, right, 3 views Technique: Knee AP, lateral, oblique 3 views Date and time of exam: June 09, 2025, 0948 hours INDICATIONS: Postop right femur surgery for fracture 7 months ago COMPARISON: March 10, 2025. FINDINGS: Postop reduction internal fixation fracture distal femoral shaft The fracture line is still quite visible Alignment is satisfactory IMPRESSION: Recommend CT scan knee without contrast follow-up to exclude nonunion at the distal femur fracture site
== END | disposition home or self-care (01) ==
PROVIDERS: PCP Internal Medicine Hospice and Palliative Medicine; Referring Provider Orthopaedic Surgery; Visit Provider Orthopaedic Surgery
DX: M25.861 Other specified joint disorders, right knee (principal); Z96.641 Presence of right artificial hip joint; Z98.890 Other specified postprocedural states
CPT/HCPCS: 73552; 73562

== ENCOUNTER → 2025-06-12 | Outpatient (CLI) | payer MEDICARE, BC, SELFPAY | END | disposition home or self-care (01) | LOC: SWHD 09:14 | PROVIDERS: PCP Internal Medicine Hospice and Palliative Medicine; Referring Provider Internal Medicine Hospice and Palliative Medicine; Visit Provider Surgery | DX: I87.332 Chronic venous hypertension (idiopathic) with ulcer and inflammation of left lower extremity (principal); L97.822 Non-pressure chronic ulcer of other part of left lower leg with fat layer exposed; S81.002A Unspecified open wound, left knee, initial encounter; X58.XXXA Exposure to other specified factors, initial encounter; I25.10 Atherosclerotic heart disease of native coronary artery without angina pectoris; I82.409 Acute embolism and thrombosis of unspecified deep veins of unspecified lower extremity; M19.91 Primary osteoarthritis, unspecified site; M10.9 Gout, unspecified | CPT/HCPCS: 29580 ==

== ENCOUNTER → 2025-06-16 | Outpatient (CLI) | payer MEDICARE, BC, SELFPAY | END | disposition home or self-care (01) | PROVIDERS: PCP Internal Medicine Hospice and Palliative Medicine; Referring Provider Internal Medicine Hospice and Palliative Medicine; Visit Provider Student in an Organized Health Care Education/Training Program | DX: I87.332 Chronic venous hypertension (idiopathic) with ulcer and inflammation of left lower extremity (principal); L97.822 Non-pressure chronic ulcer of other part of left lower leg with fat layer exposed; S81.002A Unspecified open wound, left knee, initial encounter; X58.XXXA Exposure to other specified factors, initial encounter; I25.10 Atherosclerotic heart disease of native coronary artery without angina pectoris; I82.409 Acute embolism and thrombosis of unspecified deep veins of unspecified lower extremity; M19.91 Primary osteoarthritis, unspecified site; M10.9 Gout, unspecified | CPT/HCPCS: 97597 ==

== ENCOUNTER → 2025-06-17 | Outpatient (CLI) | payer MEDICARE, BC, SELFPAY | END | disposition home or self-care (01) | LOC: SLDO 13:53 | PROVIDERS: Referring Provider Student in an Organized Health Care Education/Training Program; Visit Provider Student in an Organized Health Care Education/Training Program | DX: L02.416 Cutaneous abscess of left lower limb (principal) | CPT/HCPCS: 87070; 87075; 87077; 87186; 87205 ==

== ENCOUNTER → 2025-06-19 | Outpatient (CLI) | payer MEDICARE, BC, SELFPAY | END | disposition home or self-care (01) | LOC: SWHD 10:41 | PROVIDERS: PCP Internal Medicine Hospice and Palliative Medicine; Referring Provider Internal Medicine Hospice and Palliative Medicine; Visit Provider Surgery | DX: I87.332 Chronic venous hypertension (idiopathic) with ulcer and inflammation of left lower extremity (principal); L97.822 Non-pressure chronic ulcer of other part of left lower leg with fat layer exposed; S81.002A Unspecified open wound, left knee, initial encounter; X58.XXXA Exposure to other specified factors, initial encounter; I25.10 Atherosclerotic heart disease of native coronary artery without angina pectoris; I82.409 Acute embolism and thrombosis of unspecified deep veins of unspecified lower extremity; M19.91 Primary osteoarthritis, unspecified site; M10.9 Gout, unspecified | CPT/HCPCS: 29580; A9270 ==